=== PATIENT | female | born 2000 | race Caucasian/White ===

== ENCOUNTER 2020-03-18 01:30 | Emergency (ER) | payer BC ==
[2020-03-18] MEDS ORDERED: Ondansetron PF 4 MG/2 ML Vial ONE (01:49)
[2020-03-18] MEDS ORDERED: Morphine 4 MG/ML VIAL ONE (01:49)
[2020-03-18 02:00] LABS: #Basophils 0.1 thou/uL (0.0-0.2); #Lymphocytes 1.3 thou/uL (1.20-3.40); #Monocytes 1.1 thou/uL (0.11-0.59); #Neutrophils 9.7 thou/uL (1.40-6.50); %Basophils 0.5 % (0.0-1.0); %Eosinophils 0.2 % (0.0-10.0); %Lymphocytes 10.6 % (21.0-51.0); %Monocytes 8.9 % (0.0-10.0); %Neutrophils 79.9 % (42.0-75.0); Mean Corpuscular HGB CONC 34.2 g/dL (32.0-36.0); Mean Corpuscular Hemoglobin 33.1 pg (27.0-31.0); Mean Corpuscular Volume 96.6 fL (78.0-98.0); Platelet Count 346 thou/uL (130-400); RBC Distribution Width 11.2 % (11.5-14.5); Red Blood Cell (RBC) Count 5.13 mill/uL (4.20-5.40); White Blood Cell (WBC) Count 12.1 thou/uL (4.8-10.8)
[2020-03-18 02:05] LABS: Bacteria/HPF None Seen HPF (None Seen); Bilirubin Negative (Negative); Blood, Urine Negative (Negative); Clarity Turbid (Clear); Glucose, Urine (Dipstick) Normal (Negative); Ketone, Urine 80 mg/dL (Negative); Leukocyte 25 Leu/uL (Negative); Nitrite Negative (Negative); Protein, Urine (Dipstick) 30 mg/dL (Neg-Trace); RBC/HPF 0-3 HPF (0-3); Specific Gravity, Urine 1.044 (1.002-1.036); Urobilinogen Normal mg/dL (Less than 2)
[2020-03-18 02:17] LABS: BHCG - Serum Negative (NEGATIVE); Pregs Control Background? CLEAR/WHITE (CLR/WHITE); Pregs Control Bar Appear? YES (CONTROL BAR)
[2020-03-18 02:22] LABS: ALT (SGPT) 11 U/L (8-55); AST (SGOT) 19 U/L (5-34); Albumin 4.7 g/dL (3.5-5.0); Alkaline Phosphatase 74 U/L (40-110); Anion Gap 19 mmol/L (10-20); BUN (Urea Nitrogen) 7 mg/dL (7.0-18.7); Bilirubin, Total 0.9 mg/dL (0.2-1.2); Calc. Creatinine Clearance 0 mL/min (70-130); Calcium 9.8 mg/dL (7.8-10.44); Carbon Dioxide 17 mmol/L (22-29); Chloride 105 mmol/L (98-107); Estimated GFR-MDRD 80; Globulin 2.8 g/dL (2.4-3.5); Glucose 180 mg/dL (70-105); Lipase 13 U/L (8-78); Potassium 3.3 mmol/L (3.5-5.1); Protein, Total 7.5 g/dL (6.0-8.3); Sodium 138 mmol/L (136-145)
[2020-03-18] MEDS ORDERED: Promethazine HCl 25 MG/ML VIAL ONE (03:58)
--- NOTE | 2020-03-18 07:48 | ULT ---
PRELIMINARY REPORT/[facility]/EMERGENCY AFTER HOURS PROCEDURE EXAM: US Pelvis, Complete. CLINICAL HISTORY: Pelvic pain today, N/V, diarrhea TECHNIQUE: Transvaginal and transabdominal pelvic ultrasound (complete) with image documentation. COMPARISON: None provided. FINDINGS: ENDOMETRIUM: Normal thickness. Measures 3.2 mm UTERUS/CERVIX: Normal size and contour. No fibroid detected. Measure 7.8 x 2.7 x 3.3 cm RIGHT OVARY: Normal follicles. No adnexal mass. Normal blood flow. Measures 2.9 x 2.2 x 2.1 cm and demonstrates m ultiple cysts measuring up to 1.7 cm LEFT OVARY: Normal follicles. No adnexal mass. Normal blood flow. Measures 2.4 x 1.5 x 2.1 cm and demonstrates m ultiple cysts measuring up to 0.9 cm FREE FLUID: No free fluid. IMPRESSION: Essentially unremarkable pelvic ultrasound. ELECTRONICALLY SIGNED BY: Deepak Reddy MD Mar 18, 2020 2:35:12 AM CDT This report is intended for review by the ordering physician only, in accordance of law. If you recei ve this report in error, please call [facility] at [phone]. FINAL REPORT Final report by Dr. Branch Emergency after-hours study ULTRASOUND PELVIC ULTRASOUND TRANSVAGINAL DOPPLER DUPLEX: DATE: 03/18/2020 HISTORY: 19-year-old female with pelvic pain TECHNIQUE: Transabdominal transducer and endovaginal transducer used to visualize intrapelvic contents with viramontes scale, color-flow, and spectral analysis. FINDINGS: Uterus is normal in size and shape. Endometrial stripe is of normal thickness. No uterine leiomyoma is identified. Bilateral ovaries are normal in size. Blood flow is demonstrated in both ovaries. No ovarian cyst 2 cm or larger is identified. Minimal amount of free fluid is identified in the cul-de-sac. No disagreement with preliminary report by [facility]. IMPRESSION: Normal Transcribed Date/Time: 03/18/2020 8:33 AM
--- NOTE | 2020-03-18 09:04 | CT ---
PRELIMINARY REPORT/[facility]/EMERGENCY AFTER HOURS PROCEDURE: EXAM: CT Abdomen and Pelvis with Intravenous Contrast CLINICAL HISTORY: 19-year-old female patient presents ER with complaint of right lower quadrant abdominal pain that beg an earlier today. The patient reports the pain started suddenly and has progressively worsened. The p atient also reports nausea and vomiting. The patient denies any diarrhea, fever, body aches, chills, chest pain, shortness of breath, urinary complaints, vaginal bleeding, vaginal discharge, or other sy mptoms at this time. TECHNIQUE: Axial computed tomography images of the abdomen and pelvis with intravenous contrast. CONTRAST: With; ISOVUE 370,100mL COMPARISON: US - [facility] - 03/18/2020 01:58 AM CDT FINDINGS: LUNG BASES: No basilar airspace consolidation or pleural effusion. LIVER: Unremarkable. GALLBLADDER AND BILE DUCTS: Unremarkable. No calcified stone. No ductal dilation. PANCREAS: Unremarkable. SPLEEN: Unremarkable. ADRENAL GLANDS: Unremarkable. KIDNEYS, URETERS, AND BLADDER: Unremarkable. No hydronephrosis or nephrolithiasis. No ureteral or bladder calculi. STOMACH AND BOWEL: No obstruction. No wall thickening. No CT evidence of colitis or acute diverticulitis. APPENDIX: No CT evidence for appendicitis. PERITONEUM: No free fluid. No free air. LYMPH NODES: Mild prominent mucosal enhancement of multiple loops of distal ileum. Mild increased number of mesent damir lymph nodes. REPRODUCTIVE: Unremarkable as visualized. VASCULATURE: No aortic aneurysm. BONES: No fracture or suspicious osseous abnormality. ABDOMINAL WALL AND SOFT TISSUES: Unremarkable. IMPRESSION: No acute abnormality with findings suggestive of possible underlying enteritis. ELECTRONICALLY SIGNED BY: Rodriguez Levi DO Mar 18, 2020 4:20:24 AM CDT This report is intended for review by the ordering physician only, in accordance of law. If you recei ve this report in error, please call [facility] at [phone]. FINAL REPORT EMERGENCY AFTER HOURS CT ABDOMEN AND PELVIS: HISTORY: Right lower quadrant abdominal pain. FINDINGS/IMPRESSION: I agree with the findings and impression given in the preliminary report per [facility] physici an. No evidence of acute intra-abdominal/pelvic abnormality. POS: [facility]
[2020-03-18] MEDS ORDERED: Iopamidol-370 76% 500 ML 1 ML ONE (15:05)
== END 2020-03-18 04:30 | disposition home or self-care (01) ==
LOC: ERS 01:30
DX: K52.9 Noninfective gastroenteritis and colitis, unspecified (principal); R11.2 Nausea with vomiting, unspecified; F31.9 Bipolar disorder, unspecified
CPT/HCPCS: 36415; 74177; 76856; 80053; 81003; 81015; 83690; 84703; 85025; 87086; 96365; 96375; J2270; J2405; J2550; Q9967